=== PATIENT | female | born 1950 | race American Indian/Alaskan Native ===

== ENCOUNTER 2017-02-13 08:38 | Emergency (ER) | payer MEDICARE, OTHER ==
[2017-02-13 09:31] LABS: Basophils % (Auto) 0.4 % (0.0-1.8); Eosinophils % (Auto) 0.7 % (0.0-4.3); Hematocrit 38.3 % (30.3-42.9); Hemoglobin 11.9 gm/dl (10.1-14.3); Mean Corpuscular HGB Conc 31 % (30-34); Mean Corpuscular Volume 80 fl (79-97); Platelet Count 362 K/mm3 (140-440); Red Blood Count 4.77 M/mm3 (3.65-5.03); Red Cell Distribution Width 13.6 % (13.2-15.2); White Blood Count 13.8 K/mm3 (4.5-11.0)
[2017-02-13 09:37] LABS: Mean Corpuscular Hemoglobin 25 pg (28-32)
[2017-02-13 10:35] LABS: Alanine Aminotransferase 10 units/L (7-56); Alkaline Phosphatase 82 units/L (35-129); Anion Gap 23 mmol/L; BUN/Creatinine Ratio 21.42; Blood Urea Nitrogen 15 mg/dL (7-17); Calcium 9.8 mg/dL (8.4-10.2); Carbon Dioxide 22 mmol/L (22-30); Glucose 199 mg/dL (65-100); Lipase 29 units/L (13-60); Potassium 3.7 mmol/L (3.6-5.0); Sodium 139 mmol/L (137-145)
[2017-02-13 11:45] LABS: Bacteria,Urine 1+ /HPF (Negative); Bilirubin,Urine NEG (Negative); Blood,Urine LG (Negative); Ketones,Urine NEG (Negative); Leukocyte Esterase,Urine MOD (Negative); Nitrite,Urine NEG (Negative); Urobilinogen,Urine < 2.0 mg/dL (<2.0)
[2017-02-13 11:47] LABS: RBC,Urine > 182.0 /HPF (0.0-6.0); WBC,Urine > 182.0 /HPF (0.0-6.0)
[2017-02-13 12:54] VITALS: BP 168/85
[2017-02-13] MEDS ORDERED: MACROBID PO ONE (13:27)
--- NOTE | 2017-02-13 13:30 | Emergency Department Report ---
HPI - General Chief Complaint: Urogenital-Female Time Seen by Provider: 02/13/17 13:11 - HPI HPI: This is a 66-year-old [place] female presents to the emergency department with a complaint of a 2 day history of painful urination and some blood seen in the urine as well. She has some mild suprapubic abdominal discomfort but denies any flank or back pain, nausea vomiting, fever or chills. She does take anything for symptoms prior to presentation. She has a past medical history of diabetes, hypertension and hyperlipidemia. The patient has a primary care physician in [facility], where she spends half of her time. She returned there on Sunday. No sick contacts at home. She denies any history of kidney stones. ED Past Medical Hx - Past Medical History Previous Medical History?: Yes Hx Hypertension: Yes Hx Diabetes: Yes Hx Asthma: Yes Additional medical history: Hypercholesterolemia - Surgical History Past Surgical History?: Yes Hx Appendectomy: Yes Additional Surgical History: c section / lumpectomy, ganglion cyst removal - Social History Smoking Status: Never Smoker Substance Use Type: Prescribed - Medications Home Medications: Home Medications Medication Instructions Recorded Confirmed Last Taken Type Albuterol Sulfate [Albuterol 0.63% 0.63 mg IH TID PRN #90 ml 05/08/14 06/13/15 Unknown Rx NEBS] Ferrous Sulfate [Iron Supplement] 325 mg PO DAILY 05/08/14 06/13/15 06/12/15 History Hydrochlorothiazide 25 mg PO DAILY 05/08/14 06/13/15 06/12/15 History Ranitidine HCl [Zantac] 300 mg PO QDAY 05/08/14 06/13/15 06/12/15 History Simvastatin [Zocor] 75 mg PO ONCE 05/08/14 06/13/15 05/04/14 History 1 metFORMIN [Glucophage] 500 mg PO BID 05/08/14 06/13/15 06/12/15 History Benzonatate [Tessalon Perles] 100 mg PO Q8HR #20 capsule 06/13/15 Unknown Rx HYDROcodone/APAP 5-325 [Maxwell 1 each PO Q6HR PRN #14 tablet 06/13/15 Unknown Rx 5/325] Ipratropium/Albuter (Nf) 2 puff IH BID 06/13/15 06/13/15 Unknown History [Combivent (Nf)] Levofloxacin [Levaquin] 750 mg PO QDAY #5 tablet 06/13/15 Unknown Rx glipiZIDE [Glucotrol] 5 mg PO QDAY 06/13/15 06/13/15 06/12/15 History predniSONE [Deltasone] 20 mg PO QDAY #5 tab 06/13/15 Unknown Rx Nitrofurantoin Rush/M-Cryst 100 mg PO Q12HR #14 capsule 02/13/17 Unknown Rx [Macrobid CAP] ED Review of Systems ROS: Stated complaint: BLOOD IN URINE Other details as noted in HPI Comment: All other systems reviewed and negative Constitutional: denies: chills, fever Eyes: denies: eye pain, eye discharge, vision change ENT: denies: ear pain, throat pain Respiratory: denies: cough, shortness of breath, wheezing Cardiovascular: denies: chest pain, palpitations Gastrointestinal: denies: nausea, vomiting Genitourinary: dysuria, hematuria. denies: discharge Musculoskeletal: denies: back pain, joint swelling, arthralgia Skin: denies: rash, lesions Neurological: denies: headache, weakness, paresthesias Physical Exam - Physical Exam Vital Signs: Vital Signs 02/13/17 02/13/17 02/13/17 09:04 12:53 12:54 Temperature 98.3 F 98.8 F Pulse Rate 88 74 Respiratory 18 20 20 Rate Blood Pressure 157/90 Blood Pressure 168/85 [Left] O2 Sat by Pulse 96 97 97 Oximetry Physical Exam: GENERAL: The patient is well-developed well-nourished. HENT: Normocephalic. Atraumatic. Patient has moist mucous membranes. EYES: Extraocular motions are intact. Pupils equal reactive to light bilaterally. NECK: Supple. Trachea is midline. CHEST/LUNGS: Clear to auscultation. There is no respiratory distress noted. HEART/CARDIOVASCULAR: Regular. There is no tachycardia. There is no gallop rub or murmur. ABDOMEN: Abdomen is soft, nontender. Patient has normal bowel sounds. There is no abdominal distention. SKIN: Skin is warm and dry. NEURO: The patient is awake, alert, and oriented. The patient is cooperative. The patient has no focal neurologic deficits. The patient has normal speech. MUSCULOSKELETAL: There is no tenderness or deformity. There is no limitation range of motion. There is no evidence of acute injury. ED Course Vital Signs 02/13/17 02/13/17 02/13/17 09:04 12:53 12:54 Temperature 98.3 F 98.8 F Pulse Rate 88 74 Respiratory 18 20 20 Rate Blood Pressure 157/90 Blood Pressure 168/85 [Left] O2 Sat by Pulse 96 97 97 Oximetry ED Medical Decision Making - Lab Data Result diagrams: 02/13/17 09:14 02/13/17 09:14 - Medical Decision Making 66-year-old female presents to the emergency department with some dysuria and hematuria. She does not have any significant abdominal or back pain or flank pain. Vital signs stable including being afebrile. Labs show a urinary tract infection and a significant amount of hematuria. The rest labs are normal including kidney function. She has some mild hyperglycemia but no signs of diabetic ketoacidosis. She appears stable for discharge home. She was started on antibiotics and given the first dose here. She was given a referral for urology and encouraged to follow up with her PCP. She will return to the ER if any worsening or symptoms or any acute distress. - Differential Diagnosis UTI, malignancy, nephrolithiasis, interstitial cystitis Critical Care Time: No Critical care attestation.: If time is entered above; I have spent that time in minutes in the direct care of this critically ill patient, excluding procedure time. ED Disposition Clinical Impression: UTI (urinary tract infection) Qualifiers: Urinary tract infection type: acute cystitis Hematuria presence: with hematuria Qualified Code(s): N30.01 - Acute cystitis with hematuria Hypertension Qualifiers: Hypertension type: essential hypertension Qualified Code(s): I10 - Essential ( primary) hypertension Hematuria Qualifiers: Hematuria type: gross Qualified Code(s): R31.0 - Gross hematuria Disposition: DC-01 TO HOME OR SELFCARE Is pt being admited?: No Condition: Stable Instructions: Urinary Tract Infection in Women (ED), Acute Hematuria (ED), Hypertension (ED) Additional Instructions: Please follow-up with your primary care doctor when you return to [facility]. I' ve given referral for a local urologist, Dr. Francis, in case you would like to follow up regarding your urinary tract infection and blood in the urine. Return to the emergency department with any worsening of your symptoms or any acute distress. Prescriptions: Nitrofurantoin Rush/M-Cryst [Macrobid CAP] 100 mg PO Q12HR #14 capsule Referrals: PRIMARY CARE, [Primary Care Provider] - 3-5 Days PARISA FRANCIS MD [Staff Physician] - 3-5 Days Time of Disposition: 13:30
== END 2017-02-13 14:04 | disposition home or self-care (01) ==
LOC: ED 08:38
DX: N39.0 Urinary tract infection, site not specified (principal); I10 Essential (primary) hypertension; E11.9 Type 2 diabetes mellitus without complications; E78.00 Pure hypercholesterolemia, unspecified
CPT/HCPCS: 36415; 80053; 81001; 83690; 85025; 87076; 87086; 87186; 99283